=== PATIENT | male | born 1980 | race Caucasian/White ===

== ENCOUNTER 2019-03-16 04:06 | Emergency (ER) | payer BC, MEDICARE ==
[~2019-03-16] VITALS: Ht 175.3 cm; Wt 76.0 kg
[2019-03-16 07:02] LABS: BASOPHILS % 0.6 % (0.0-2.0); EOSINOPHILS % 1.1 % (0.0-5.0); HEMATOCRIT. 42.9 % (42.0-52.0); HEMOGLOBIN. 14.7 g/dL (14.0-18.0); LYMPHOCYTES % 32.8 % (20.0-50.0); MEAN CORPUSCULAR HEMOGLOBIN 31.1 pg (28.0-32.0); MEAN CORPUSCULAR VOLUME 90.7 fL (80.0-94.0); MEAN PLATELET VOLUME 7.7 fl (7.4-10.4); MONOCYTES % 9.5 % (2.0-8.0); PLATELET 228 x1000/uL (130-400); RED BLOOD CELL COUNT 4.74 mill/uL (4.7-6.1); RED CELL DISTRIBUTION WIDTH 15.5 % (11.6-14.6)
[2019-03-16 07:10] LABS: CHLORIDE 109 mEq/L (98-107)
[2019-03-16 07:14] LABS: ETHANOL BLOOD 77 mg/dL
[2019-03-16] MEDS ORDERED: KETOROLAC 60MG/2ML VIAL IM ONE (08:45)
[2019-03-16 11:21] VITALS: BP 125/78
== END 2019-03-16 11:25 | disposition home or self-care (01) ==
LOC: ER 04:06
DX: S20.20XA Contusion of thorax, unspecified, initial encounter (principal); F10.129 Alcohol abuse with intoxication, unspecified; Y90.3 Blood alcohol level of 60-79 mg/100 ml; Y04.0XXA Assault by unarmed brawl or fight, initial encounter; Y93.89 Activity, other specified; Y92.89 Other specified places as the place of occurrence of the external cause
CPT/HCPCS: 36415; 71101; 80048; 80307; 80320; 80329; 85025; 93005; 96372; 99284; J1885; Z7610; G0480